=== PATIENT | female | born 1985 | race Caucasian/White ===

== ENCOUNTER 2023-08-01 09:51 | Outpatient (AMB) | payer OTHER, SELFPAY ==
--- NOTE | 2023-08-01 10:06 | A.OFFVIS_ITS ---
Intake Vital Signs 08/01/23 10:08 Height 5 ft Weight 165 lb BMI 32.2 BP 124/84 Blood Pressure Location Rt brachial Position Sitting Pulse 94 Pulse Source Pulse Oximeter Pulse Oximetry (%) 99 Oxygen Delivery Method Room Air Intake Visit Reasons: NPV upper ext neuropathy Intake Note: Patient presents for evaluation for neuropathy. Patient states This started month ago I ended up urgent care for numbness on my left arm, since then I was reffered to a hand doctor whom i saw a month ago they stated it could be carpal tunnel. Allergies No Known Allergies Allergy (Verified 08/01/23 10:10) Medication List - Last Reconciled 08/01/23 by Julia Marc, [employer] CALCULATOR CLERK hydroxyzine HCl 10 mg PO TID medroxyprogesterone 150 mg IM [id number] HPI HPI Comments History of Present Illness Details Right handed 38-yr-old female presents for neurological evaluation of: Pt reports before Dec 2022, out of the blue w/o provoking injury, she started having left hand then over days lower arm, and then upper arm numbness/tingling. Prior to the onset of the numbness/tingling, she did feel some LUE pa in/weakness- say when grabbing something out of the washer. She recalls noting that the posterior hand looked more swollen, especially her veins looked distended. She did see urgent care, who advised her to see neuro. She has seen Marielle MICHELLE at [facility] about a month ago- who felt pt had LUE CTS. They suggested she try a brace, which she is trying to use during the day prn. This seems to have helped- was using daily but now more prn. She now notes more hand/joint soreness than numbness/tingling. She did break her left elbow in 2nd grade- was casted. Pt works from home- uses a computer all day. Patient also endorses: Bad neck pain (prior to the LUE s/s/), bad occipital headaches (can be migrainous if untreated but has not been that severe in a long time), dizziness, leg cramping at times, anxiety, some sleep difficulties- early awakening. And patient denies: Any previous h/o numbness/tingling, skin color changes, diabetes. [facility] Medical History (Updated 08/01/23 @ 13:16 by EDSON Andrade) Anxiety HGSIL (high grade squamous intraepithelial lesion) on Pap smear of cervix Nephrolithiasis Duodenitis Jejunitis History of COVID-19 Abdominal wall hernia Surgical History [place] teeth removed H/O lithotripsy Family History Maternal Grandmother Stroke Maternal Grandfather Dementia Brother CAD (coronary artery disease) Paternal Grandmother Breast cancer in female Social History Alcohol intake: current Patient Tobacco Use Status: Former Tobacco user Review of Systems Const Details: See scanned ROS form Physical Exam Vital Signs: Last Vital Signs Pulse 94 08/01/23 10:08 BP 124/84 08/01/23 10:08 Pulse Ox 99 08/01/23 10:08 Oxygen Delivery Method Room Air 08/01/23 10:08 BMI result Body Mass Index 32.2 Const General: cooperative and no acute distress Orientation/consciousness: patient oriented x3 HEENT Head: Yes normocephalic Resp Effort & Inspection: normal respiratory effort and able to speak in complete sentences Back/Spine/Pelvis Other: Bilateral posterior cervical tightness. Left shoulder slightly dropped compared to right. Cervical ROM: full Left Spurling: non-radiating base of neck discomfort Right Spurling: non-radiating base of neck discomfort Neuro Other: BUE L > R- Positive Tinnel. BUE- Negative medial compression test, Phalen test. BUE sensation intact. BUE MS 5/5, just very slight decrease in LUE upper arm strength compared to right on empty can test. General: patient oriented x3, CN's II-XI intact bilaterally and deep tendon reflexes 2+ bilaterally Gait exam (Neuro): Normal gait present Motor exam (neuro): 5/5 motor strength present throughout Psych Appearance: grossly normal Mental Status: mental status grossly normal Speech and movement: Normal speech and movement present Affect: normal affect Attitude: cooperative Thought process: Normal thought process present Thought content: Normal thought content present Insight: Good insight present (Psych) Assessment & Plan Assessment & Plan (1) Paresthesia of left upper extremity: Code(s): R20.2 - Paresthesia of skin (2) Positive Tinel's sign: Comment: BUE L > R Code(s): R20.2 - Paresthesia of skin (3) Cervicalgia: Code(s): M54.2 - Cervicalgia Plan Will check B-12, Folate, TSH. Pt advised to undergo BUE EMG/NCS- to assess for CTS, cervical radiculopathy. Use left wrist splint qhs. Pt may benefit from trying yoga. Future considerations- c-spine imaging, PT. f/u in 3-4 months or sooner prn. Orders: Orders TSH reflex Free T4 Today R20.2 - Paresthesia of skin NE electromyogram (EMG) Today R20.2 - Paresthesia of skin Vitamin B12 and Folate Today R20.2 - Paresthesia of skin Medications: New magnesium oxide may hold for loose stools 400 mg PO BEDTIME 30 days 30 tabs 6RF Coding Level of Care Code New Pt Level 4 (41761) Diagnoses Paresthesia of left upper extremity R20.2 Positive Tinel's sign R20.2 Cervicalgia M54.2
[2023-08-01 10:08] VITALS: BP 124/84; PULSE 94; O2SAT 99; BMI 32.2
== END 2023-08-01 11:10 | disposition home or self-care (01) ==
PROVIDERS: Visit Provider Nurse Practitioner Family
DX: R20.2 Paresthesia of skin (principal); M54.2 Cervicalgia
CPT/HCPCS: 99204

== ENCOUNTER → 2023-08-01 09:51 | Outpatient (BNVA) | payer OTHER, SELFPAY | PROVIDERS: Visit Provider Nurse Practitioner Family | DX: R20.2 Paresthesia of skin (principal); M54.2 Cervicalgia | CPT/HCPCS: 99202 ==

== ENCOUNTER 2023-09-02 09:55 | Outpatient (REF) | payer OTHER, SELFPAY ==
--- NOTE | 2023-09-02 | EMG_ITS ---
Chief complaint: Hand numbness, mainly left-sided Reason for referral: Evaluate for Carpal Tunnel Syndrome Referred by: Julia Marc NP Procedure done: Left upper extremity NCS/EMG Precautions and/or limitations: None The limb temperature was monitored continuously and remained between 32-36 degrees C during the performance of the NCS. Nerve Conduction Studies Anti Sensory Summary Table ?Stim Site NR Onset (ms) Norm Onset (ms) Peak (ms) Norm Peak (ms) O-P Amp (?V) Norm O-P Amp Site1 Site2 Delta-0 (ms) Dist (cm) Otto (m/s) Norm Otto (m/s) Left Median Anti Sensory (2nd Digit) Wrist ? 2.8 3.5 <3.6 60.1 >10 Wrist 2nd Digit 2.8 14.0 50 Left Ulnar Anti Sensory (5th Digit) Wrist ? 2.2 2.8 <3.7 62.4 >15.0 Wrist 5th Digit 2.2 14.0 64 Motor Summary Table ?Stim Site NR Onset (ms) Norm Onset (ms) O-P Amp (mV) Norm O-P Amp iAmp (mV) Amp (1st) (%) Site1 Site2 Delta-0 (ms) Dist (cm) Otto (m/s) Norm Otto (m/s) Left Median Motor (Abd Poll Brev) Wrist ? 3.4 <3.9 8.2 >4.5 9.3 100.0 Elbow Wrist 2.9 16.5 57 >45 Elbow ? 6.3 6.7 7.8 81.7 Left Ulnar Motor (Abd Dig Minimi) Wrist ? 2.7 <3.0 6.3 >5 6.9 100.0 B Elbow Wrist 2.6 15.0 58 >45 B Elbow ? 5.3 6.5 7.1 103.2 A Elbow B Elbow 1.3 10.0 77 >45 A Elbow ? 6.6 6.4 7.0 101.6 Comparison Summary Table ?Stim Site NR Peak (ms) Norm Peak (ms) P-T Amp (?V) Site1 Site2 Delta-P (ms) Norm Delta (ms) Left Median/Radial Dig I Comparison (Digit 1 - 10cm) Median ? 2.9 <2.9 72.9 Median Radial -0.1 Radial ? 3.0 <2.8 31.7 EMG ?Side Muscle Nerve Root Ins Act Fibs Psw Amp Dur Poly Recrt Int Pat Comment Left 1stDorInt Ulnar C8-T1 Nml Nml Nml Nml Nml 0 Nml Complete Left FlexCarRad Median C6-7 Nml Nml Nml Nml Nml 0 Nml Complete Left Biceps Musculocut C5-6 Nml Nml Nml Nml Nml 0 Nml Complete Left Triceps Radial C6-7-8 Nml Nml Nml Nml Nml 0 Nml Complete Left Deltoid Axillary C5-6 Nml Nml Nml Nml Nml 0 Nml Complete FINDINGS: All motor and sensory nerves tested showed normal latencies, amplitudes and conduction velocities. Concentric needle EMG was performed in selected muscles of the left upper extremity. Study did not reveal signs of electric abnormalities as shown in the table below. IMPRESSION: 1. This is a normal study. 2. There is no electrodiagnostic evidence for left median neuropathy, ulnar neuropathy, brachial plexopathy, or cervical radiculopathy. Thank you for your kind referral. Delicia Meeks MD, JAX Board Certified, [place] Board of [employer] and Rehabilitation (ABPMR) Board Certified, [place] Board of Electrodiagnostic Medicine (ABEM) CODIN [id number] MTDD
== END 2023-09-02 09:56 | disposition home or self-care (01) ==
LOC: HO.NEURO 09:55
PROVIDERS: PCP Internal Medicine; Visit Provider Nurse Practitioner Family
DX: R20.2 Paresthesia of skin (principal)
CPT/HCPCS: 95886; 95909

== ENCOUNTER → 2023-09-02 09:59 | Outpatient (BNV) | payer OTHER, SELFPAY | PROVIDERS: PCP Internal Medicine; Visit Provider Physical Medicine & Rehabilitation | DX: R20.2 Paresthesia of skin (principal) | CPT/HCPCS: 95886; 95909 ==